=== PATIENT | male | born 1995 | race American Indian/Alaskan Native ===

== ENCOUNTER 2018-12-10 21:16 | Emergency (ER) | payer OTHER ==
[2018-12-10 22:14] VITALS: BP 126/72
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
--- NOTE | 2018-12-10 23:44 | XRay Report ---
PROCEDURE: XR SPINE LUMBOSACRAL 2-3V TECHNIQUE: AP and lateral lumbar spine HISTORY: low back pain COMPARISONS: None FINDINGS: Vertebral body height and alignment normal. Disc spaces normal. SI joints unremarkable. Mineralization normal IMPRESSION: Normal for age.. This document is electronically signed by Sanya Sorensen MD., Dec 10 2018 11:42:40 PM ET
== END 2018-12-11 00:10 | disposition left against medical advice (07) ==
LOC: ED 21:16
DX: M54.2 Cervicalgia (principal); M54.9 Dorsalgia, unspecified; Z53.21 Procedure and treatment not carried out due to patient leaving prior to being seen by health care provider
CPT/HCPCS: 72100